=== PATIENT | male | born 1955 | race Two or more races ===

== ENCOUNTER 2017-10-11 21:05 | Emergency (ER) | payer OTHER ==
[~2017-10-11] VITALS: Ht 167.6 cm; Wt 73.9 kg
[2017-10-11 21:30] VITALS: Ht 167.6 cm; Wt 73.9 kg
[2017-10-12 01:19] VITALS: BP 156/92
== END 2017-10-12 01:19 | disposition home or self-care (01) ==
LOC: ED 21:05
DX: S39.012A Strain of muscle, fascia and tendon of lower back, initial encounter (principal); M51.36 Other intervertebral disc degeneration, lumbar region; M25.559 Pain in unspecified hip; I10 Essential (primary) hypertension; Z88.5 Allergy status to narcotic agent; V49.9XXA Car occupant (driver) (passenger) injured in unspecified traffic accident, initial encounter; Y93.73 Activity, racquet and hand sports; Y92.488 Other paved roadways as the place of occurrence of the external cause; Y99.8 Other external cause status

== ENCOUNTER 2019-03-10 20:05 | Emergency (ER) | payer OTHER ==
[~2019-03-10] VITALS: Ht 167.6 cm; Wt 75.7 kg
[2019-03-10 20:10] VITALS: Ht 167.6 cm; Wt 75.7 kg
[2019-03-11 00:21] VITALS: BP 145/96
== END 2019-03-11 00:21 | disposition home or self-care (01) ==
LOC: ED 20:05
DX: M54.5 Low back pain (principal); I10 Essential (primary) hypertension; Z88.5 Allergy status to narcotic agent; V49.49XA Driver injured in collision with other motor vehicles in traffic accident, initial encounter; Y93.I9 Activity, other involving external motion; Y92.413 State road as the place of occurrence of the external cause; Y99.8 Other external cause status
CPT/HCPCS: J1885